=== PATIENT | female | born 1960 | race Caucasian/White ===

== ENCOUNTER 2020-11-27 10:12 | Observation (INO) ==
[2020-11-27] MEDS ORDERED: Clindamycin 300 MG/50 ML 300 MG/50 ML IV.SOLN IVPB ONE ×2 (11:43→14:52)
[2020-11-27 12:31] LABS: Basophils # 0.1 K/mcL (0.0-0.2); Basophils % 0.5 %; Eosinophils # 0.4 K/mcL (0.0-0.6); Eosinophils % 3.4 %; Hematocrit 40.4 % (35.3-44.9); Hemoglobin 13.5 g/dL (11.5-15.4); Immature Granulocytes % 0.4 % (0-4); Lymphocytes # 3.1 K/mcL (0.6-4.6); Lymphocytes % 25.5 %; Mean Corpuscular HGB Conc 33.4 g/dL (31.6-35.5); Mean Corpuscular Hemoglobin 28.2 pg (28.0-33.3); Mean Corpuscular Volume 84.3 fL (83.0-100.0); Mean Platelet Volume 9.6 fL (9.4-12.4); Monocytes % 8.3 %; Neutrophils # 7.5 K/mcL (1.6-8.9); Platelet Count 244 K/mcL (140-400); Red Blood Count 4.79 M/mcL (3.82-4.97); Red Cell Distribution Width 13.2 % (11.5-14.5); Segmented Neutrophils % 61.9 %; White Blood Count 12.1 K/mcL (4.3-11.1)
[2020-11-27 12:51] LABS: Alanine Aminotransferase 8 Units/L (7-52); Albumin/Globulin Ratio 1.6 (1.1-2.2); Alkaline Phosphatase 97 Units/L (34-104); Aspartate Amino Transferase 10 Units/L (13-39); BUN/Creatinine Ratio 19 (6-26); Bilirubin,Total 0.5 mg/dL (0.3-1.0); Blood Urea Nitrogen 16 mg/dL (6-20); Carbon Dioxide 29 mEq/L (23-29); Chloride 106 mEq/L (98-107); Globulin 2.5 g/dL (2.4-3.5); Glucose 84 mg/dL (70-105); Osmolality,Calculated 294 (280-300); Potassium 3.1 mEq/L (3.5-5.1); Sodium 142 mEq/L (136-145); Total Protein 6.5 g/dL (6.4-8.9); eGFR For African Americans > 60 (> 60); eGFR For Non-African Americans > 60 (> 60)
[2020-11-27] MEDS ORDERED: Naloxone 0.4 MG/ML INJ IVP PRN (13:59)
[2020-11-27] MEDS ORDERED: Acetaminophen 325 MG TABLET PO PRN (14:37)
[2020-11-27] MEDS: cefTRIAXone 2,000 MG in Water for inj. (sterile) 10 ML IVP SCH (15:06)
[2020-11-27] MEDS: Ketorolac 30 MG/ML VIAL IVP PRN (15:06)
[2020-11-27] MEDS: Clindamycin 600 MG/50 ML 600 MG/50 ML IV.SOLN IVPB SCH (15:07)
[2020-11-27] MEDS: *HR* HYDROcodone/Acet 5/325 mg TABLET PO PRN (17:18)
[2020-11-27] MEDS: *HR* Heparin 5,000 UNIT/ML VIAL SQ SCH (19:05)
[2020-11-27] MEDS: *HR* OxyCODONE Immed Rel 5 MG TABLET PO SCH (20:48)
[2020-11-27] MEDS: amLODIPine 5 MG TABLET PO SCH (20:49)
[2020-11-27] MEDS: FLUoxetine 20 MG CAPSULE PO SCH (20:49)
[2020-11-27] MEDS: clonazePAM 0.5 MG TABLET PO SCH (20:49)
[2020-11-28] MEDS: Clindamycin 600 MG/50 ML 600 MG/50 ML IV.SOLN IVPB SCH ×4 (00:38→23:02)
[2020-11-28] MEDS: *HR* HYDROcodone/Acet 5/325 mg TABLET PO PRN ×2 (00:44→07:57)
[2020-11-28 02:34] LABS: Basophils % 0.4 %; Eosinophils # 0.7 K/mcL (0.0-0.6); Eosinophils % 6.2 %; Hematocrit 40.5 % (35.3-44.9); Hemoglobin 13.3 g/dL (11.5-15.4); Immature Granulocytes % 0.5 % (0-4); Lymphocytes # 2.9 K/mcL (0.6-4.6); Lymphocytes % 27.4 %; Mean Corpuscular HGB Conc 32.8 g/dL (31.6-35.5); Mean Corpuscular Hemoglobin 28.8 pg (28.0-33.3); Mean Corpuscular Volume 87.7 fL (83.0-100.0); Mean Platelet Volume 9.5 fL (9.4-12.4); Monocytes % 9.4 %; Platelet Count 222 K/mcL (140-400); Red Blood Count 4.62 M/mcL (3.82-4.97); Red Cell Distribution Width 13.2 % (11.5-14.5); Segmented Neutrophils % 56.1 %; White Blood Count 10.7 K/mcL (4.3-11.1)
[2020-11-28 02:52] LABS: BUN/Creatinine Ratio 22 (6-26); Blood Urea Nitrogen 18 mg/dL (6-20); Calcium 8.9 mg/dL (8.6-10.3); Carbon Dioxide 27 mEq/L (23-29); Chloride 107 mEq/L (98-107); Glucose 93 mg/dL (70-105); Osmolality,Calculated 294 (280-300); Potassium 3.4 mEq/L (3.5-5.1); Sodium 141 mEq/L (136-145); eGFR For African Americans > 60 (> 60); eGFR For Non-African Americans > 60 (> 60)
[2020-11-28] MEDS: *HR* Heparin 5,000 UNIT/ML VIAL SQ SCH ×2 (05:20→16:14)
[2020-11-28] MEDS: Ketorolac 30 MG/ML VIAL IVP PRN ×3 (06:16→23:08)
[2020-11-28] MEDS: cefTRIAXone 2,000 MG in Water for inj. (sterile) 10 ML IVP SCH (07:42)
[2020-11-28] MEDS ORDERED: Potassium Chloride Elixir 20 MEQ/15 ML UDC PO ONE (14:55)
[2020-11-28] MEDS: *HR* HYDROcodone/Acet 7.5/325 mg TABLET PO PRN (17:11)
[2020-11-28] MEDS: FLUoxetine 20 MG CAPSULE PO SCH (20:47)
[2020-11-28] MEDS: amLODIPine 5 MG TABLET PO SCH (20:47)
[2020-11-28] MEDS: clonazePAM 0.5 MG TABLET PO SCH (20:47)
[2020-11-28] MEDS: *HR* OxyCODONE Immed Rel 5 MG TABLET PO SCH (20:47)
[2020-11-29 02:52] LABS: BUN/Creatinine Ratio 20 (6-26); Blood Urea Nitrogen 16 mg/dL (6-20); Calcium 8.9 mg/dL (8.6-10.3); Carbon Dioxide 26 mEq/L (23-29); Chloride 107 mEq/L (98-107); Glucose 99 mg/dL (70-105); Osmolality,Calculated 291 (280-300); Potassium 4.1 mEq/L (3.5-5.1); Sodium 140 mEq/L (136-145); eGFR For African Americans > 60 (> 60); eGFR For Non-African Americans > 60 (> 60)
[2020-11-29] MEDS: *HR* HYDROcodone/Acet 7.5/325 mg TABLET PO PRN (03:23)
[2020-11-29] MEDS: *HR* Heparin 5,000 UNIT/ML VIAL SQ SCH (05:14)
[2020-11-29 06:29] VITALS: BP 137/72
[2020-11-29] MEDS: cefTRIAXone 2,000 MG in Water for inj. (sterile) 10 ML IVP SCH (09:11)
[2020-11-29] MEDS: Clindamycin 600 MG/50 ML 600 MG/50 ML IV.SOLN IVPB SCH (09:11)
== END 2020-11-29 11:38 | disposition home or self-care (01) ==
LOC: 3NENU 10:12 → EMEROOARM 10:12 → SUATTDRO 13:22 → 3NENU 14:17
PROVIDERS: ADMIT Internal Medicine; ATTEND Internal Medicine

== ENCOUNTER 2022-01-27 08:22 | Inpatient (IN) ==
[2022-01-27] MEDS ORDERED: Morphine Sulfate 2 MG/ML SYRINGE IVP ONE ×2 (08:49→15:57)
[2022-01-27] MEDS ORDERED: Ondansetron 4 MG/2 ML VIAL IVP ONE (08:51)
[2022-01-27 08:58] LABS: Basophils % 0.2 %; Hematocrit 38.8 % (35.3-44.9); Hemoglobin 12.7 g/dL (11.5-15.4); Immature Granulocytes % 0.3 % (0-4); Lymphocytes # 1.8 K/mcL (0.6-4.6); Lymphocytes % 16.9 %; Mean Corpuscular HGB Conc 32.7 g/dL (31.6-35.5); Mean Corpuscular Hemoglobin 27.9 pg (28.0-33.3); Mean Corpuscular Volume 85.3 fL (83.0-100.0); Mean Platelet Volume 9.2 fL (9.4-12.4); Monocytes # 1.2 K/mcL (0.0-1.3); Neutrophils # 7.7 K/mcL (1.6-8.9); Platelet Count 291 K/mcL (140-400); Red Blood Count 4.55 M/mcL (3.82-4.97); Red Cell Distribution Width 13.3 % (11.5-14.5); Segmented Neutrophils % 71.6 %; White Blood Count 10.7 K/mcL (4.3-11.1)
[2022-01-27 09:16] LABS: Alanine Aminotransferase 262 Units/L (7-52); Albumin 4.2 g/dL (3.5-5.7); Albumin/Globulin Ratio 1.6 (1.1-2.2); Alkaline Phosphatase 358 Units/L (34-104); Aspartate Amino Transferase 395 Units/L (13-39); BUN/Creatinine Ratio 17 (6-26); Bilirubin,Direct 0.2 mg/dL (0.0-0.2); Bilirubin,Indirect 0.5 mg/dL (0.0-1.0); Bilirubin,Total 0.7 mg/dL (0.3-1.0); Blood Urea Nitrogen 13 mg/dL (8-23); Calcium 9.1 mg/dL (8.6-10.3); Carbon Dioxide 26 mEq/L (23-29); Chloride 103 mEq/L (98-107); Globulin 2.7 g/dL (2.4-3.5); Glucose 116 mg/dL (70-105); Lipase 40 Units/L (11-82); Osmolality,Calculated 283 (280-300); Potassium 3.3 mEq/L (3.5-5.1); Sodium 136 mEq/L (136-145); Total Protein 6.9 g/dL (6.4-8.9); eGFR For African Americans > 60 (> 60); eGFR For Non-African Americans > 60 (> 60)
[2022-01-27] MEDS ORDERED: Ringers Solution, Lactated 1,000 ML IVC ONE (09:36)
[2022-01-27] MEDS ORDERED: *HR* OxyCODONE Immed Rel 5 MG TABLET PO PRN (09:39)
[2022-01-27] MEDS ORDERED: Melatonin 3 MG TABLET PO PRN (09:39)
[2022-01-27] MEDS ORDERED: Naloxone 0.4 MG/ML INJ IVP PRN ×2 (09:39)
[2022-01-27] MEDS: Ringers Solution, Lactated 1,000 ML IVC SCH (16:46)
[2022-01-27] MEDS: amLODIPine 5 MG TABLET PO SCH (16:46)
[2022-01-27] MEDS ORDERED: Tiotropium 10 INH DOSE IH SCH (21:00)
[2022-01-27] MEDS: clonazePAM 0.5 MG TABLET PO SCH (21:01)
[2022-01-27] MEDS: FLUoxetine 20 MG CAPSULE PO SCH (21:02)
[2022-01-28] MEDS: Tiotropium 10 INH DOSE IH SCH ×2 (00:01→10:06)
[2022-01-28] MEDS: Ringers Solution, Lactated 1,000 ML IVC SCH ×3 (01:00→20:37)
[2022-01-28] MEDS ORDERED: Acetaminophen 325 MG TABLET PO ONE (04:25)
[2022-01-28 05:33] LABS: Basophils % 0.1 %; Hematocrit 34.9 % (35.3-44.9); Hemoglobin 11.3 g/dL (11.5-15.4); Immature Granulocytes % 0.2 % (0-4); Lymphocytes # 1.9 K/mcL (0.6-4.6); Lymphocytes % 23.1 %; Mean Corpuscular HGB Conc 32.4 g/dL (31.6-35.5); Mean Corpuscular Volume 86.6 fL (83.0-100.0); Mean Platelet Volume 9.7 fL (9.4-12.4); Monocytes # 0.8 K/mcL (0.0-1.3); Monocytes % 9.3 %; Neutrophils # 5.5 K/mcL (1.6-8.9); Platelet Count 275 K/mcL (140-400); Red Blood Count 4.03 M/mcL (3.82-4.97); Red Cell Distribution Width 13.3 % (11.5-14.5); Segmented Neutrophils % 67.3 %; White Blood Count 8.2 K/mcL (4.3-11.1)
[2022-01-28 05:40] LABS: INR 1.2; Prothrombin Time 13.6 Seconds (9.4-12.1)
[2022-01-28 05:53] LABS: Alanine Aminotransferase 159 Units/L (7-52); Albumin 3.4 g/dL (3.5-5.7); Albumin/Globulin Ratio 1.5 (1.1-2.2); Alkaline Phosphatase 276 Units/L (34-104); Aspartate Amino Transferase 118 Units/L (13-39); BUN/Creatinine Ratio 14 (6-26); Bilirubin,Direct 0.1 mg/dL (0.0-0.2); Bilirubin,Indirect 0.3 mg/dL (0.0-1.0); Bilirubin,Total 0.4 mg/dL (0.3-1.0); Blood Urea Nitrogen 11 mg/dL (8-23); Calcium 8.4 mg/dL (8.6-10.3); Carbon Dioxide 30 mEq/L (23-29); Chloride 103 mEq/L (98-107); Globulin 2.3 g/dL (2.4-3.5); Glucose 94 mg/dL (70-105); Lipase 31 Units/L (11-82); Osmolality,Calculated 285 (280-300); Potassium 3.5 mEq/L (3.5-5.1); Sodium 138 mEq/L (136-145); Total Protein 5.7 g/dL (6.4-8.9); eGFR For African Americans > 60 (> 60); eGFR For Non-African Americans > 60 (> 60)
[2022-01-28 07:18] LABS: Hepatitis B Surface Antigen Nonreactive (Nonreactive)
[2022-01-28 07:46] LABS: Hepatitis C Virus Antibody Nonreactive (Nonreactive)
[2022-01-28 07:48] LABS: Hepatitis A Antibody IgM Nonreactive (Nonreactive)
[2022-01-28] MEDS: amLODIPine 5 MG TABLET PO SCH (09:35)
[2022-01-28] MEDS: clonazePAM 0.5 MG TABLET PO SCH (20:14)
[2022-01-28] MEDS: FLUoxetine 20 MG CAPSULE PO SCH (20:14)
[2022-01-29 06:10] LABS: Albumin 3.6 g/dL (3.5-5.7); Albumin/Globulin Ratio 1.5 (1.1-2.2); Bilirubin,Direct 0.1 mg/dL (0.0-0.2); Bilirubin,Indirect 0.3 mg/dL (0.0-1.0); Bilirubin,Total 0.4 mg/dL (0.3-1.0); Globulin 2.4 g/dL (2.4-3.5)
[2022-01-29] MEDS: Ringers Solution, Lactated 1,000 ML IVC SCH ×2 (06:39→22:53)
[2022-01-29] MEDS: amLODIPine 5 MG TABLET PO SCH (08:41)
[2022-01-29] MEDS: Tiotropium 10 INH DOSE IH SCH (10:15)
[2022-01-29] MEDS: *HR* Heparin 5,000 UNIT/ML VIAL SQ SCH (19:10)
[2022-01-29] MEDS: FLUoxetine 20 MG CAPSULE PO SCH (20:15)
[2022-01-29] MEDS: clonazePAM 0.5 MG TABLET PO SCH (20:15)
[2022-01-29] MEDS: Ondansetron 4 MG/2 ML VIAL IVP PRN (21:37)
[2022-01-30] MEDS: *HR* Heparin 5,000 UNIT/ML VIAL SQ SCH ×2 (05:46→16:55)
[2022-01-30] MEDS ORDERED: *HR* FentaNYL (PF) 100 MCG/2 ML VIAL IVP ONE (07:26)
[2022-01-30] MEDS ORDERED: *HR* Midazolam HCl 5 MG/5 ML VIAL IVP ONE (07:26)
[2022-01-30] MEDS: Ringers Solution, Lactated 1,000 ML IVC SCH ×2 (07:27→16:56)
[2022-01-30] MEDS: Tiotropium 10 INH DOSE IH SCH (07:58)
[2022-01-30] MEDS: amLODIPine 5 MG TABLET PO SCH (08:56)
[2022-01-30] MEDS: clonazePAM 0.5 MG TABLET PO SCH (21:22)
[2022-01-30] MEDS: FLUoxetine 20 MG CAPSULE PO SCH (21:23)
[2022-01-30] MEDS: Ondansetron 4 MG/2 ML VIAL IVP PRN (21:30)
[2022-01-31] MEDS: Ringers Solution, Lactated 1,000 ML IVC SCH ×3 (02:16→23:13)
[2022-01-31] MEDS: *HR* Heparin 5,000 UNIT/ML VIAL SQ SCH ×2 (05:31→16:33)
[2022-01-31 06:51] LABS: Basophils % 0.1 %; Hematocrit 36.2 % (35.3-44.9); Immature Granulocytes % 0.4 % (0-4); Lymphocytes # 1.6 K/mcL (0.6-4.6); Lymphocytes % 15.8 %; Mean Corpuscular HGB Conc 33.1 g/dL (31.6-35.5); Mean Corpuscular Volume 84.6 fL (83.0-100.0); Mean Platelet Volume 9.7 fL (9.4-12.4); Monocytes % 9.8 %; Neutrophils # 7.4 K/mcL (1.6-8.9); Platelet Count 327 K/mcL (140-400); Red Blood Count 4.28 M/mcL (3.82-4.97); Red Cell Distribution Width 13.2 % (11.5-14.5); Segmented Neutrophils % 73.9 %; White Blood Count 10.1 K/mcL (4.3-11.1)
[2022-01-31] MEDS: amLODIPine 5 MG TABLET PO SCH (07:57)
[2022-01-31] MEDS: Tiotropium 10 INH DOSE IH SCH (08:06)
[2022-01-31 08:38] LABS: Alanine Aminotransferase 56 Units/L (7-52); Albumin 3.7 g/dL (3.5-5.7); Albumin/Globulin Ratio 1.3 (1.1-2.2); Alkaline Phosphatase 213 Units/L (34-104); Aspartate Amino Transferase 18 Units/L (13-39); BUN/Creatinine Ratio 7 (6-26); Bilirubin,Total 0.4 mg/dL (0.3-1.0); Blood Urea Nitrogen 6 mg/dL (8-23); Calcium 8.7 mg/dL (8.6-10.3); Carbon Dioxide 28 mEq/L (23-29); Chloride 98 mEq/L (98-107); Globulin 2.8 g/dL (2.4-3.5); Glucose 81 mg/dL (70-105); Osmolality,Calculated 279 (280-300); Potassium 3.7 mEq/L (3.5-5.1); Sodium 136 mEq/L (136-145); Total Protein 6.5 g/dL (6.4-8.9); eGFR For African Americans > 60 (> 60); eGFR For Non-African Americans > 60 (> 60)
[2022-01-31] MEDS: Ipratropium/Albuterol Neb 3 ML IH SCH ×3 (11:46→19:55)
[2022-01-31] MEDS: FLUoxetine 20 MG CAPSULE PO SCH (20:07)
[2022-01-31] MEDS: clonazePAM 0.5 MG TABLET PO SCH (20:08)
[2022-02-01 03:40] LABS: BUN/Creatinine Ratio 8 (6-26); Blood Urea Nitrogen 6 mg/dL (8-23); Calcium 8.7 mg/dL (8.6-10.3); Carbon Dioxide 29 mEq/L (23-29); Chloride 100 mEq/L (98-107); Glucose 106 mg/dL (70-105); Osmolality,Calculated 282 (280-300); Potassium 3.8 mEq/L (3.5-5.1); Sodium 137 mEq/L (136-145); eGFR For African Americans > 60 (> 60); eGFR For Non-African Americans > 60 (> 60)
[2022-02-01] MEDS: Ipratropium/Albuterol Neb 3 ML IH SCH ×3 (03:57→16:19)
[2022-02-01] MEDS: *HR* Heparin 5,000 UNIT/ML VIAL SQ SCH (05:25)
[2022-02-01] MEDS: Ringers Solution, Lactated 1,000 ML IVC SCH (08:16)
[2022-02-01] MEDS: amLODIPine 5 MG TABLET PO SCH (08:17)
[2022-02-01] MEDS: Tiotropium 10 INH DOSE IH SCH (08:20)
[2022-02-01 13:53] LABS: Adenovirus Not Detected (Not Detect); Bordetella Pertussis Not Detected (Not Detect); Chlamydophila pneumoniae Not Detected (Not Detect); Coronavirus 229E Not Detected (Not Detect); Coronavirus HKU1 Not Detected (Not Detect); Coronavirus NL63 Not Detected (Not Detect); Coronavirus OC43 Not Detected (Not Detect); Human Metapneumovirus Not Detected (Not Detect); Human Rhinovirus/Enterovirus Not Detected (Not Detect); Influenza A Subtype 2009 H1 Not Detected (Not Detect); Influenza B Not Detected (Not Detect); Mycoplasma pneumoniae Not Detected (Not Detect); Parainfluenza Virus 1 Not Detected (Not Detect); Parainfluenza Virus 2 Not Detected (Not Detect); Parainfluenza Virus 3 Not Detected (Not Detect); Parainfluenza Virus 4 Not Detected (Not Detect); Respiratory Syncytial Virus Not Detected (Not Detect); SARS-CoV-2 Not Detected (Not Detect)
[2022-02-01 15:43] VITALS: BP 142/87; PULSE 81; TEMP 98.6
[2022-02-01 16:22] VITALS: O2SAT 96
== END 2022-02-01 17:11 | disposition home or self-care (01) | DRG 440 ==
LOC: EMEROOARM 08:22 → 3ANU 08:22 → SUATTDRO 01-29 14:47
PROVIDERS: ADMIT Hospitalist; ATTEND Student in an Organized Health Care Education/Training Program